=== PATIENT | male | born 1940 | race Caucasian/White ===

== ENCOUNTER → 2020-03-03 07:11 | Outpatient (CLI) | payer OTHER, SELFPAY ==
[2020-03-03 08:07] LABS: Hematocrit 40.3 % (41-53); Hemoglobin 14.2 g/dL (13.5-17.5); Mean Corpuscular HGB Conc 35.2 % (30-36); Mean Corpuscular Hemoglobin 33.9 PG (26-34); Mean Corpuscular Volume 96.1 fL (80-100); Platelet Count 219 X10^3/uL (150-400); Red Blood Cell Count 4.19 X10^6/uL (4.5-5.9); Red Cell Distribution Width 12.3 % (11.6-14.8)
[2020-03-03 08:22] LABS: Neutrophils Absolute Manual 2900 /uL (3000-5900); RBC Morphology Normal Morphology; Total Cells Counted 100
[2020-03-03 09:10] LABS: Vitamin B12 817 pg/mL (239-931)
[2020-03-03 09:36] LABS: Vitamin D 25 Hydroxy (D3) 57.2 ng/mL (30.0-100.0)
== END ==
PROVIDERS: Family Provider Internal Medicine; Referring Provider Internal Medicine; Visit Provider Internal Medicine
DX: E55.9 Vitamin D deficiency, unspecified (principal); E53.8 Deficiency of other specified B group vitamins
CPT/HCPCS: 36415; 82306; 82607; 85025

== ENCOUNTER → 2021-12-06 14:05 | Outpatient (CLI) | payer OTHER, SELFPAY ==
--- NOTE | 2021-12-06 14:08 | DI.US.S_ITS ---
PROCEDURE: US ABD AORTA ANEURYSM SCREEN INDICATIONS: ATHEROSCLEROTIC HEART DISEASE; ABDOMINAL PAIN TECHNIQUE: Real time scanning was performed of the aorta and iliac arteries, with image documentation. COMPARISON: US, ABDOMEN COMPLETE, 10/30/2013, 8:58. FINDINGS: Aorta: Proximal aortic diameter measures 2.3 cm. Mid-aorta measures 2.1 cm. Distal aortic diameter is 1.8 cm. Iliac arteries: Right common iliac artery measures 0.4 cm. Left common iliac artery measures 1.5 cm. IMPRESSION: No abdominal aortic or proximal common iliac artery aneurysm. Dictated by: Balta Marie [facility] Interpreted: Toni Ferguson MD on 12/06/2021 at 15:06 Transcribed by: BASILIA on 12/06/2021 at 15:06 Approved by: Toni Ferguson M.D. on 12/07/2021 at 10:42
--- NOTE | 2021-12-06 14:08 | DI.US.S_ITS ---
PROCEDURE: US CAROTID DOPPLER BI INDICATIONS: ATHEROSCLEROTIC HEART DISEASE TECHNIQUE: Color and pulse Doppler interrogation was performed of both carotid systems, with image documentation and velocity measurements. COMPARISON: None. FINDINGS: Stenosis calculations are based on SRU (Society of Radiologists in Ultrasound) criteria. Right side: Brachial blood pressure: 112/74 mm Hg. Common carotid artery peak systolic velocity: 73 cm/sec. Internal carotid artery peak systolic velocity: 50 cm/sec. Internal carotid artery end diastolic velocity: 13 cm/sec. External carotid artery peak systolic velocity: 112 cm/sec. ICA/CCA peak systolic ratio: 0.7 . De Jesus scale imaging description: Mild scattered plaque. Percent internal carotid artery stenosis: Less than 50% . Vertebral artery: Flow direction is antegrade. Left side: Brachial blood pressure: 115/71 mm Hg. Common carotid artery peak systolic velocity: 82 cm/sec. Internal carotid artery peak systolic velocity: 66 cm/sec. Internal carotid artery end diastolic velocity: 22 cm/sec. External carotid artery peak systolic velocity: 77 cm/sec. ICA/CCA peak systolic ratio: 0.8 . De Jesus scale imaging description: Mild to moderate plaque Percent internal carotid artery stenosis: Less than 50% . Vertebral artery: Flow direction is antegrade. IMPRESSION: Less than 50% bilateral internal carotid artery stenosis. Dictated by: Balta Marie [facility] Interpreted: Toni Ferguson MD on 12/06/2021 at 15:13 Transcribed by: BASILIA on 12/06/2021 at 15:16 Approved by: Toni Ferguson M.D. on 12/07/2021 at 10:42
== END ==
PROVIDERS: Family Provider Internal Medicine; PCP Internal Medicine; Referring Provider Specialist; Visit Provider Specialist
DX: I65.23 Occlusion and stenosis of bilateral carotid arteries (principal); I25.110 Atherosclerotic heart disease of native coronary artery with unstable angina pectoris; Z13.6 Encounter for screening for cardiovascular disorders; R10.9 Unspecified abdominal pain
CPT/HCPCS: 76706; 93880

== ENCOUNTER → 2022-02-18 09:25 | Outpatient (CLI) | payer OTHER, SELFPAY ==
[2022-02-18 10:35] LABS: Add Manual Diff / Slide Review NO; Basophils Absolute Auto 100 /uL (0-100); Basophils Percent Auto 1.4 % (0-2); Eosinophils Absolute Auto 500 /uL (0-450); Eosinophils Percent Auto 7.6 % (2-4); Hematocrit 38.3 % (41-53); Hemoglobin 13.8 g/dL (13.5-17.5); Lymphocytes Absolute Auto 1400 /uL (1100-4500); Lymphocytes Percent Auto 22.5 % (25-40); Mean Corpuscular Hemoglobin 34.2 PG (26-34); Mean Corpuscular Volume 95.2 fL (80-100); Monocytes Absolute Auto 500 /uL (0-900); Monocytes Percent Auto 8.7 % (3-14); Neutrophils Absolute Auto 3700 /uL (1500-7000); Neutrophils Percent Auto 59.8 % (50-75); Platelet Count 258 X10^3/uL (150-400); Red Blood Cell Count 4.02 X10^6/uL (4.5-5.9); Red Cell Distribution Width 12.6 % (11.6-14.8); White Blood Cell Count 6.2 X10^3/uL (4.5-11.0)
[2022-02-18 10:52] LABS: Alanine Aminotransferase 21 IU/L (<50); Albumin Globulin Ratio 1.7 (1.0-2.8); Alkaline Phosphatase 87 U/L (38-126); Aspartate Aminotransferase 28 IU/L (17-59); Bilirubin Total 1.1 mg/dL (0.2-1.3); Blood Urea Nitrogen 12 mg/dL (9-20); Calcium 9.1 mg/dL (8.4-10.2); Carbon Dioxide 31 mmol/L (22-32); Chloride 105 mmol/L (98-107); Estimated Glomerular Filt Rate > 60 mL/min (>60); Globulin 2.4 g/dL (1.7-4.1); Glucose 123 mg/dL (80-110); HEMOLYSIS < 15 (0-50); Potassium 4.6 mmol/L (3.4-5.1); Sodium 139 mmol/L (137-145); Total Protein 6.4 g/dL (6.3-8.2)
[2022-02-18 11:03] LABS: Hemoglobin A1C% w Est Avg Glu 5.8 % (4.0-6.0)
[2022-02-18 11:13] LABS: TSH w/ Reflex to FT4 4.22 uIU/mL (0.47-4.68)
== END ==
PROVIDERS: Family Provider Internal Medicine; PCP Internal Medicine; Referring Provider Internal Medicine; Visit Provider Internal Medicine
DX: I25.10 Atherosclerotic heart disease of native coronary artery without angina pectoris (principal); R73.9 Hyperglycemia, unspecified; R41.0 Disorientation, unspecified
CPT/HCPCS: 36415; 80053; 83036; 84443; 85025

== ENCOUNTER → 2022-06-02 15:48 | Outpatient (CLI) | payer OTHER, SELFPAY | PROVIDERS: Family Provider Internal Medicine; PCP Internal Medicine; Referring Provider Internal Medicine; Visit Provider Internal Medicine | DX: B77.9 Ascariasis, unspecified (principal) | CPT/HCPCS: 87177 ==

== ENCOUNTER → 2023-10-05 12:43 | Outpatient (CLI) | payer OTHER, SELFPAY ==
[2023-10-08 15:30] LABS: Fecal Immunochemical Test Negative (Negative)
== END ==
LOC: LAB 12:44
PROVIDERS: Family Provider Internal Medicine; PCP Internal Medicine; Referring Provider Surgery; Visit Provider Surgery
DX: Z86.010 Personal history of colon polyps (principal)
CPT/HCPCS: 82274

== ENCOUNTER → 2024-02-19 09:37 | Outpatient (CLI) | payer OTHER, SELFPAY ==
[2024-02-19 12:29] LABS: Glucose 123 mg/dL (80-110)
[2024-02-19 15:40] LABS: Hemoglobin A1C% w Est Avg Glu 5.9 % (4.0-6.0)
== END ==
PROVIDERS: Family Provider Internal Medicine; PCP Internal Medicine; Referring Provider Internal Medicine; Visit Provider Internal Medicine
DX: R73.9 Hyperglycemia, unspecified (principal)
CPT/HCPCS: 36415; 82947; 83036

== ENCOUNTER → 2024-09-11 15:20 | Outpatient (CLI) | payer OTHER, SELFPAY ==
[2024-09-16 11:38] LABS: Cholesterol, Total 112 mg/dL (100-199); HDL-Cholesterol 64 mg/dL (>39); HDL-Particle (Total) 28.9 umol/L (>=30.5); Historical Reading Comment: (.); LDL Particle <300 nmol/L (<1000); LDL-Cholsterol 34 mg/dL (0-99); LP-IR Score <25 (<=45); Small LDL- Particle <90 nmol/L (<=527); Triglycerides 65 mg/dL (0-149)
== END ==
PROVIDERS: Family Provider Internal Medicine; PCP Internal Medicine; Referring Provider Specialist; Visit Provider Specialist
DX: E78.2 Mixed hyperlipidemia (principal)
CPT/HCPCS: 36415; 80061; 83704

== ENCOUNTER → 2024-11-13 09:02 | Outpatient (CLI) | payer OTHER, SELFPAY ==
[2024-11-13 10:22] LABS: Hemoglobin A1C% w Est Avg Glu 5.9 % (4.0-6.0)
[2024-11-13 10:28] LABS: Glucose 127 mg/dL (80-110)
== END ==
PROVIDERS: Family Provider Internal Medicine; PCP Internal Medicine; Referring Provider Internal Medicine; Visit Provider Internal Medicine
DX: R73.9 Hyperglycemia, unspecified (principal)
CPT/HCPCS: 36415; 82947; 83036

== ENCOUNTER → 2024-12-25 15:30 | Outpatient (CLI) | payer OTHER, SELFPAY ==
[2024-12-25 16:06] LABS: Add Manual Diff / Slide Review NO; Basophils Absolute Auto 100 /uL (0-100); Basophils Percent Auto 0.8 % (0-2); Eosinophils Absolute Auto 200 /uL (0-450); Eosinophils Percent Auto 1.9 % (2-4); Hematocrit 35.8 % (41-53); Hemoglobin 12.7 g/dL (13.5-17.5); Lymphocytes Absolute Auto 1500 /uL (1100-4500); Lymphocytes Percent Auto 17.8 % (25-40); Mean Corpuscular HGB Conc 35.4 % (30-36); Mean Corpuscular Hemoglobin 34.1 PG (26-34); Mean Corpuscular Volume 96.5 fL (80-100); Monocytes Absolute Auto 700 /uL (0-900); Monocytes Percent Auto 8.1 % (3-14); Neutrophils Absolute Auto 6100 /uL (1500-7000); Neutrophils Percent Auto 71.4 % (50-75); Platelet Count 215 X10^3/uL (150-400); Red Blood Cell Count 3.71 X10^6/uL (4.5-5.9); White Blood Cell Count 8.5 X10^3/uL (4.5-11.0)
[2024-12-25 16:33] LABS: Alanine Aminotransferase 21 IU/L (<50); Albumin 4.1 g/dL (3.5-5.0); Albumin Globulin Ratio 1.7 (1.0-2.8); Alkaline Phosphatase 80 U/L (38-126); Aspartate Aminotransferase 25 IU/L (17-59); BUN Creatinine Ratio 26.6 (6-22); Bilirubin Total 1.1 mg/dL (0.2-1.3); Blood Urea Nitrogen 21 mg/dL (9-20); Calcium 8.9 mg/dL (8.4-10.2); Carbon Dioxide 25 mmol/L (22-32); Chloride 105 mmol/L (98-107); Estimated Glomerular Filt Rate > 60 mL/min (>60); Globulin 2.4 g/dL (1.7-4.1); Glucose 209 mg/dL (80-110); HEMOLYSIS < 15 (0-50); Lactate Dehydrogenase 192 U/L (120-246); Potassium 3.9 mmol/L (3.4-5.1); Sodium 138 mmol/L (137-145); Total Protein 6.5 g/dL (6.3-8.2)
[2024-12-25 17:04] LABS: Prostate Specific Antigen 0.323 ng/mL (0.10-4.00)
[2024-12-25 18:03] LABS: Erythrocyte Sedimentation Rate 12 MM/HR (0-15)
[2024-12-29 12:39] LABS: Albumin 3.7 g/dL (2.9-4.4); Alpha 1 Globulin 0.2 g/dL (0.0-0.4); Alpha 2 Globulin 0.6 g/dL (0.4-1.0); Beta 1 Globulin 0.9 g/dL (0.7-1.3); Gamma Globulin 0.8 g/dL (0.4-1.8); Protein, Total 6.2 g/dL (6.0-8.5)
== END ==
PROVIDERS: Physician Assistant; Family Provider Internal Medicine; PCP Internal Medicine; Referring Provider Internal Medicine; Visit Provider Internal Medicine
DX: R59.1 Generalized enlarged lymph nodes (principal)
CPT/HCPCS: 36415; 80053; 83615; 84153; 84155; 84165; 85025; 85651

== ENCOUNTER → 2024-12-30 15:12 | Outpatient (CLI) | payer OTHER, SELFPAY ==
--- NOTE | 2024-12-30 15:14 | DI.US.S_ITS ---
PROCEDURE: US SOFT TISSUE HEAD AND NECK INDICATIONS: RIGHT SUBMANDIBULAR LUMP TECHNIQUE: Real-time scanning was performed of the neck region of interest, with image documentation. COMPARISON: None. FINDINGS AND IMPRESSION: Heterogeneous enlarged submandibular gland, possibly inflammatory, though this could also represent a gland replaced by malignant mass lesion. There is an adjacent abnormal lymph node measuring 2.1 x 1.6 x [address] neck and ultrasound-guided sampling. Dictated by: Cesar Urbina M.D. on 12/30/2024 at 15:58 Approved by: Cesar Urbina M.D. on 12/30/2024 at 15:59
== END ==
PROVIDERS: Family Provider Internal Medicine; PCP Internal Medicine; Referring Provider Physician Assistant; Visit Provider Physician Assistant
DX: K11.1 Hypertrophy of salivary gland (principal); R59.1 Generalized enlarged lymph nodes
CPT/HCPCS: 76536

== ENCOUNTER → 2025-01-02 13:48 | Outpatient (CLI) | payer OTHER, SELFPAY ==
--- NOTE | 2025-01-02 13:48 | DI.CT.S_ITS ---
PROCEDURE: CT SOFT TISSUE NECK W CON INDICATIONS: mass right submandibular TECHNIQUE: After the administration of intravenous contrast, 3.0 mm axial sections acquired from the sella to the aortic arch. Additional oblique axial 3.0 mm sections acquired through the pharynx. 3 mm thick coronal and sagittal reformats were generated. For radiation dose reduction, the following was used: automated exposure control. COMPARISON: [facility], US, US SOFT TISSUE HEAD AND NECK, 12/30/2024, 15:29. [facility], CT, CT HEAD WITHOUT CONTRAST, 03/10/2020, 5:51. FINDINGS: Image quality: Excellent. Lymph nodes: No enlarged lymph nodes seen throughout the neck. Vessels: Visualized vasculature appears patent. Neck spaces: The oropharynx, nasopharynx, and pharynx demonstrate no mucosal lesions. The vocal cords, false vocal cords, pyriform sinuses, epiglottis, vallecula, and tongue base all appear normal. Extramucosal spaces appear unremarkable. Glands: The parotid glands appear normal. Along the inferior anterior aspect of the right submandibular gland there is an ovoid soft tissue density measuring 2.4 x 1.3 cm. The right submandibular gland appears slightly asymmetrically prominent. Thyroid gland is unremarkable. Miscellaneous: Visualized brain and orbits appear normal. Lung apices appear clear. Superficial soft tissues appear normal. Bones: No suspicious bony lesions. Visualized sinuses and mastoids appear unremarkable. IMPRESSION: Soft tissue mass anterior inferior to the right submandibular gland. While this could represent a pathologically enlarged lymph node, other etiologies cannot be excluded. Right submandibular gland appears mildly prominent which may be related to infection or inflammation. Infiltrative disease cannot be excluded. FNA/biopsy is recommended. Dictated by: Holly Magaña M.D. on 01/02/2025 at 15:18 Approved by: Holly Magaña M.D. on 01/02/2025 at 15:26
== END ==
PROVIDERS: Family Provider Internal Medicine; PCP Internal Medicine; Referring Provider Physician Assistant; Visit Provider Physician Assistant
DX: K11.8 Other diseases of salivary glands (principal); R59.1 Generalized enlarged lymph nodes
CPT/HCPCS: 70491; Q9967

== ENCOUNTER → 2025-01-07 10:29 | Outpatient (CLI) | payer OTHER, SELFPAY ==
[2025-01-07 11:24] LABS: Glucose 135 mg/dL (80-110)
== END ==
PROVIDERS: Family Provider Internal Medicine; PCP Internal Medicine; Referring Provider Internal Medicine; Visit Provider Internal Medicine
DX: E11.69 Type 2 diabetes mellitus with other specified complication (principal); E78.5 Hyperlipidemia, unspecified
CPT/HCPCS: 36415; 82947

== ENCOUNTER → 2025-01-14 12:38 | Outpatient (CLI) | payer OTHER, SELFPAY ==
--- NOTE | 2025-01-14 12:42 | DI.US.S_ITS ---
PROCEDURE: US BIOPSY LYMPH NODE INDICATIONS: SUBMANDIBULAR GLAND MASS TECHNIQUE: The indications, alternatives, benefits, risks, and complications of the procedure were explained to the patient. Written informed consent was obtained and placed in the chart. Real-time sonography was utilized to choose the site for percutaneous lymph node sampling. The skin was prepped and draped in the usual sterile fashion. 1% lidocaine was infiltrated down to the site of interest. A coaxial needle was then advanced into the site of interest under direct sonographic visualization. A biopsy apparatus was then utilized, and core biopsies were obtained. The needle was then withdrawn; a bandage was applied to the biopsy site. COMPARISON: None. FINDINGS: Biopsy site(s): Right submandibular lymph node and submandibular gland mass Needle: 25 and 22 gauge needles Number of passes: 6 in each lesion Medications: 1% lidocaine for local anaesthesia. Complications: None. IMPRESSION: Successful ultrasound-guided right submandibular lymph node and right submandibular mass fine needle aspiration biopsy, with pathology results pending. Dictated by: Nicolas Lopez M.D. on 01/14/2025 at 20:55 Approved by: Nicolas Lopez M.D. on 01/14/2025 at 20:57
--- NOTE | 2025-01-14 14:11 | PATH_ITS ---
Note [facility] Accession Number: [id number] TESTS RESULT FLAG UNITS REF RANGE LAB Clinician Provided Cytology Information No. of containers..01 Other (Miscellaneous) Source: RIGHT SUBMANDIBULAR GLAND X 6 DIAGNOSIS: RIGHT SUBMANDIBULAR GLAND X 6 INCONCLUSIVE. Scattered atypical epithelioid fragments and background lymphocytes. Limited cellularity. Recommend additional sampling. Pathologist ICD10: K11.8 Signed out by: Veronika Lara DO, Pathologist NPI- [id number] Performed by: Michael Hightower, Sales Route Driver Helper ([facility]) Gross description: 30 CC, YELLOW, CLEAR RECIEVED: IN CYTOLYT WITH BLUE CAP CONTAINER.VO /VDU 01/15/2025 0629 Local FLAG LEGEND: L-Low Normal,H-High Normal,LL-Alert Low,HH-Alert High <-Panic Low,>-Panic High,A-Abnormal,AA-Critical Abnormal Performed at: 01 =[address] [facility], [place] [address] Rocael Guadalupe MD, Specimen Comment: [id number] Performed at: [address], [place], [place] [id number] MD Rocael Guadalupe MD Phone: [phone]
--- NOTE | 2025-01-14 14:13 | PATH_ITS ---
Note [facility] Accession Number: [id number] TESTS RESULT FLAG UNITS REF RANGE LAB Clinician Provided Cytology Information No. of containers..01 Other (Miscellaneous) Source: RIGHT LYMPH NODE X 4 DIAGNOSIS: RIGHT LYMPH NODE X 4 NEGATIVE FOR MALIGNANT CELLS. POLYMORPHOUS LYMPHOID SAMPLE. Pathologist ICD10: R59.1 Signed out by: Veronika Lara DO, Pathologist NPI- [id number] Performed by: Sanjiv Hutchins, Integrated Specialist ([facility]) Gross description: 30 CC, COLORLESS, CLEAR RECIEVED: IN CYTOLYT WITH BLUE CAP CONTAINER.VO /VDU 01/15/2025 0630 Local FLAG LEGEND: L-Low Normal,H-High Normal,LL-Alert Low,HH-Alert High <-Panic Low,>-Panic High,A-Abnormal,AA-Critical Abnormal Performed at: 01 =Z [facility] [address], [place] [address] Rocael Guadalupe MD, Specimen Comment: [id number] Performed at: [address] [facility] [address], [place], [place] [id number] MD Rocael Guadalupe MD Phone: [phone]
== END ==
PROVIDERS: Family Provider Internal Medicine; PCP Internal Medicine; Referring Provider Physician Assistant; Visit Provider Physician Assistant
DX: K11.8 Other diseases of salivary glands (principal); R59.1 Generalized enlarged lymph nodes
CPT/HCPCS: 38505; 76942

== ENCOUNTER → 2025-01-23 12:55 | Outpatient (CLI) | payer OTHER, SELFPAY ==
--- NOTE | 2025-02-03 10:54 | DIAB.MNT ---
Initial Diabetes Medical Nutrition Therapy Assessment Name: Alejandro Tubbs (Hakan) Date: 01/23/25 Time: 2-3p Dx: Type II Diabetes Provider: Corinne Preferred Learning Style: Listening, Reading Hakan presents for initial DM visit. Recently diagnosed with elevated FBG, though HgA1c 5.9%. States he would like to know more about food combinations, when to eat, when to be active, checking BG, and more about Jardiance. States he has checked BG in the past. Interested in potential CGM sample next visit. has PCP appt coming up, plans to ask more about Jardiance. Two weeks ago noticed a vision distortion, this has since subsided. On a plant based diet. Diet Recall: 8a: 1.5c oats, smoothie with veggies, fruit, soy milk 12p: nuts, sandwich with veggie meat or PB on ww bread sn: peanuts, recently d/c dates 6p: salad and 1.5c beans or tofu OR 6-7c popcorn +/- nutritional yeast OR nothing 10p: nuts or beans butter substitute water 48oz x 1.5 soy milk with oj with dinner 16oz Recently switched from rice to riced cauliflower lives with spouse Anthropometrics: Ht: 6'1 Wt: 182# Physical Activity: Walking/jogging 4 days per week, pushups 2x per week Self-Monitoring Blood Glucose: none currently. no supplies. Diabetes Medications: 10mg Jardiance -- not started Pertinent Labs: HgA1c: 5.9% 11/2024 FBG 135mg/dl 01/07/2025 non fastinmg/dl 11/2024 Past Medical History: (Last Reviewed 01/26/25 @ 11:21 by Tristan Sun MD) Actinic keratosis Benign essential tremor Cataracts, bilateral (~2018) Chicken pox Coronary artery disease (~2000) DM type 2 with diabetic dyslipidemia Hearing loss (~2004) Lumbar degenerative disc disease Lymphadenopathy Measles Mixed hyperlipidemia Sensorineural hearing loss, bilateral Skin cancer (~1989) Nutrition Rx: Carbohydrates: Meal:45g Snack:15-30g Nutrition Diagnosis: - Nutrition and food related knowledge deficit r/t newly dx T2DM aeb elevated lab BG values and pt report - Predicted excessive CHO intake r/t nutrition knowledge deficit aeb diet recall at dinner with juice and meal Intervention: This participant was very receptive. Provided appropriate educational handouts. Discussed the following topics: Completed intake assessment. Discussed barriers to care. Pathophysiology of T2DM HgA1c v hyperglycemia diagnosis of T2DM Potential for self-monitoring, how often, and when to check. Plate Method, impact of macronutrients on blood sugar, meal timing, brief review of carb counting, pairing macronutrients and spreading out carbohydrates for better blood glucose management Recommended servings for carbohydrates at meals and snacks Heart health nutrition Impact of sugar beverages on BG Role of physical activity and following provider guidelines for safety Jardiance action, benefits, and SE Created SMART goals for patient self-care and success. Goals: Reduce oatmeal to 1c and add protein Add protein to popcorn more consistently Avoid juice Follow-up: LETTY JOSEPH follow-up in 3-4 weeks Svetlana Sena RDN, [facility] Certified Diabetes Care and Overlocker P: [phone] Thank you for this referral
== END ==
LOC: DIET 12:55
PROVIDERS: Family Provider Internal Medicine; PCP Internal Medicine; Referring Provider Internal Medicine
DX: E11.65 Type 2 diabetes mellitus with hyperglycemia (principal); Z71.3 Dietary counseling and surveillance
CPT/HCPCS: 97802

== ENCOUNTER → 2025-02-18 13:54 | Outpatient (CLI) | payer OTHER, SELFPAY ==
--- NOTE | 2025-02-18 13:58 | DIAB.MNTFU ---
Follow-up Diabetes Medical Nutrition Therapy Assessment Name: Alejandro Tubbs (Hakan) Date: 02/18/25 Time: 2-245p Dx: Type II Diabetes Hakan presents for follow-up DM visit. Recently diagnosed with elevated FBG, though HgA1c 5.9%. Taking 10mg Jardiance without SE. Eliminated juice. Added nuts to the morning Paying more attention to higher glycemic index and pairing. Looking for some variation in protein with plant based diet. Has questions about oat types. Wondering how physical activity impacts BG. wants to know how Dm can impact health. Avoiding donuts right now per reprot. Eating dark chocolate instead. Interested in sample CGM. On a plant based diet. Using a DM plant based book. lives with spouse Anthropometrics: Ht: 6'1 Wt: 173# 01/2025 176# 12/2024 Physical Activity: Walking/jogging 4 days per week, pushups 2x per week Self-Monitoring Blood Glucose: none currently. no supplies. Diabetes Medications: 10mg Jardiance Pertinent Labs: HgA1c: 5.9% 11/2024 FBG 135mg/dl 01/07/2025 non fastinmg/dl 11/2024 Past Medical History: (Last Reviewed 01/26/25 @ 11:21 by Tristan Sun MD) Actinic keratosis Benign essential tremor Cataracts, bilateral (~2018) Chicken pox Coronary artery disease (~2000) DM type 2 with diabetic dyslipidemia Hearing loss (~2004) Lumbar degenerative disc disease Lymphadenopathy Measles Mixed hyperlipidemia Sensorineural hearing loss, bilateral Skin cancer (~1989) Nutrition Rx: Carbohydrates: Meal:45g Snack:15-30g Nutrition Diagnosis: - Nutrition and food related knowledge deficit r/t newly dx T2DM aeb elevated lab BG values and pt report -- in progress - Predicted excessive CHO intake r/t nutrition knowledge deficit aeb diet recall at dinner with juice and meal -- improved - Self monitoring deficit r/t no supplies aeb pt report- new Intervention: This participant was very receptive. Provided appropriate educational handouts. Discussed the following topics: Pathophysiology of T2DM HgA1c measurement Types of oats and fiber Pairing CHO and protein Physical activity and BG CGM precautions, function, and use-- provided him with a sample FSL3 but needed passwords to start in clinic Complication risk reduction Created SMART goals for patient self-care and success. Goals: Reduce oatmeal to 1c and add protein-- met Add protein to popcorn more consistently -- met Avoid juice -- met Trial CGM sample- new Try to be active 1 hour after eating higher CHO foods- new Follow-up: LETTY JOSEPH follow-up in 3-4 weeks Svetlana Sena RDN, OP[facility] Certified Diabetes Care and Granulator P: [phone] Thank you for this referral
== END ==
PROVIDERS: Family Provider Internal Medicine; PCP Internal Medicine; Referring Provider Internal Medicine
DX: E11.65 Type 2 diabetes mellitus with hyperglycemia (principal); Z71.3 Dietary counseling and surveillance; Z79.84 Long term (current) use of oral hypoglycemic drugs
CPT/HCPCS: 97803

== ENCOUNTER → 2025-03-18 12:55 | Outpatient (CLI) | payer OTHER, SELFPAY ==
--- NOTE | 2025-03-27 09:17 | DIAB.MNTFU ---
Follow-up Diabetes Medical Nutrition Therapy Assessment Name: Alejandro Tubbs (Hakan) Date: 03/18/25 Time: 1-145p Dx: Type II Diabetes Hakan presents for follow-up DM visit. Recently diagnosed with elevated FBG, though HgA1c 5.9%. Adding protein to banana dessert. FBG improved recently, wearing CGM sample. Has questions about macronutrient pairing, kombucha benefits and CHO content. having oats for breakfast x2c cooked, no protein added. On a plant based diet. lives with spouse Anthropometrics: Ht: 6'1 Wt: 173# 01/2025 176# 12/2024 Physical Activity: Walking/jogging 4 days per week, pushups 2x per week Self-Monitoring Blood Glucose: Wore CGM sample. In range time at goal. FBG improved and lower than lab results, ranging 79-106mg/dl. TIR: 0% very high 1% high 99% in range 0% low or very low avmg/dl GMI: 6.2% variance: 20.8% Diabetes Medications: 10mg Jardiance Pertinent Labs: HgA1c: 5.9% 11/2024 FBG 135mg/dl 01/07/2025 non fastinmg/dl 11/2024 Past Medical History: (Last Reviewed 01/26/25 @ 11:21 by Tristan Sun MD) Actinic keratosis Benign essential tremor Cataracts, bilateral (~2018) Chicken pox Coronary artery disease (~2000) DM type 2 with diabetic dyslipidemia Hearing loss (~2004) Lumbar degenerative disc disease Lymphadenopathy Measles Mixed hyperlipidemia Sensorineural hearing loss, bilateral Skin cancer (~1989) Nutrition Rx: Carbohydrates: Meal:45gSnack:15-30g Nutrition Diagnosis: - Nutrition and food related knowledge deficit r/t newly dx T2DM aeb elevated lab BG values and pt report -- improved - Self monitoring deficit r/t no supplies aeb pt report- improved Intervention: This participant was very receptive. Provided appropriate educational handouts. Discussed the following topics: Kombucha benefits and CHO content BG trends and goals Fruit dessert impact on BG and importance of adding protein for BG management oats nutritoin and portion recs CGM options and BG monitoring Created SMART goals for patient self-care and success. Goals: Trial CGM sample- met Try to be active 1 hour after eating higher CHO foods- in progress Add seeds to oatmeal- new Limit oats to 1-1.5c per serving- new Try Stelo- new Follow-up: LETTY JOSEPH follow-up in 4 weeks Svetlana Sena RDN, [facility] Certified Diabetes Care and Systems Software Manager P: [phone] Thank you for this referral
== END ==
PROVIDERS: Family Provider Internal Medicine; PCP Internal Medicine
DX: E11.9 Type 2 diabetes mellitus without complications (principal); Z79.84 Long term (current) use of oral hypoglycemic drugs; Z71.3 Dietary counseling and surveillance
CPT/HCPCS: 97803

== ENCOUNTER → 2025-05-08 13:25 | Outpatient (CLI) | payer OTHER, SELFPAY ==
[2025-05-08 18:23] LABS: Blood Urea Nitrogen 16 mg/dL (9-20); Calcium 8.7 mg/dL (8.4-10.2); Carbon Dioxide 28 mmol/L (22-32); Chloride 103 mmol/L (98-107); Estimated Glomerular Filt Rate > 60 mL/min (>60); Glucose 99 mg/dL (70-99); HEMOLYSIS < 15 (0-50); Potassium 4.0 mmol/L (3.4-5.1); Sodium 137 mmol/L (137-145)
[2025-05-08 18:42] LABS: Hemoglobin A1C% w Est Avg Glu 5.9 % (4.0-6.0)
== END ==
PROVIDERS: PCP Internal Medicine; Referring Provider Internal Medicine; Visit Provider Internal Medicine
DX: E11.69 Type 2 diabetes mellitus with other specified complication (principal); E78.5 Hyperlipidemia, unspecified
CPT/HCPCS: 36415; 80048; 82043; 82570; 83036

== ENCOUNTER → 2025-05-26 09:03 | Outpatient (CLI) | payer OTHER, SELFPAY ==
--- NOTE | 2025-06-17 12:36 | DIAB.MNTFU ---
Follow-up Diabetes Medical Nutrition Therapy Assessment Name: Alejandro Tubbs (Hakan) Date: 05/26/25 Time: [id number] Dx: Type II Diabetes Hakan presents for follow-up DM visit, accompanied by his . Recently diagnosed with elevated FBG, though HgA1c 5.9%. Reports continued wt loss with diet changes, 163# reported today. States he prefers a wt of 170-174#. Endorses some vision changes lately glassy, but states this goes away after eating something. States Bg are not high or low during. No low BG documented in TIR, however may benefit from SMBG supplies to confirm. Had eye appt without concern 4-5 days ago. Diet recall: 8-9a: ww cereal with dried fruit and soy milk unsweetened and smoothie with seeds, frui and protein 12p: sandwich with veggies and tofu based protein and apple 7-8p: beans and veggies with ricotta on bread and salad 730p nut bar On a plant based diet. lives with spouse Anthropometrics: Ht: 6'1 Wt: 163# reported 05/2025 170# 03/2025 171.4# 03/2025 173# 01/2025 176# 12/2024 Physical Activity: usually walking/jogging 4 days per week, pushups 2x per week. Endorses less exercise lately. Self-Monitoring Blood Glucose: Wearing CGM. All in goal. FBG improved since elevated labs. TIR: 0% very high 5% high 95% in range 0% low or very low avmg/dl GMI: 6.4% std dev: 27mg/dl variance: 21.3% Last TIR: 0% very high 8% high 98% in range 0% low or very low avmg/dl GMI: % variance: % Diabetes Medications: 10mg Jardiance Pertinent Labs: Same hgA1c but improved FBG per labs HgA1c: 5.9% 11/2024 5.9% 05/2025 FBG 135mg/dl 01/07/2025 99mg/dl 05/2025 non fastinmg/dl 11/2024 Past Medical History: (Last Reviewed 01/26/25 @ 11:21 by Tristan Sun MD)Actinic keratosis Benign essential tremor Cataracts, bilateral (~2018) Chicken pox Coronary artery disease (~2000) DM type 2 with diabetic dyslipidemia Hearing loss (~2004) Lumbar degenerative disc disease Lymphadenopathy Measles Mixed hyperlipidemia Sensorineural hearing loss, bilateral Skin cancer (~1989) Nutrition Rx: Carbohydrates: Meal:45gSnack:15-30g Nutrition Diagnosis: - Nutrition and food related knowledge deficit r/t newly dx T2DM aeb elevated lab BG values and pt report -- improved/in progress - Predicted inadequate kcal intake r/t reduced CHO intake to manage Dm aeb pt report, diet recall and wt loss - new Intervention: This participant was very receptive. Provided appropriate educational handouts. Discussed the following topics: Physical activity and maintaining LBM Strategies to mitigate wt loss Higher kcal foods with proteins and heart healthy fats BG goals Net CHO and label reading Meal/snack timing Created SMART goals for patient self-care and success. Goals: Try thin sliced bread ww bread- met Try to move after meals- not met Restart exercise- new Try balanced snack bar- new Add 3-4p snack- new Consider adding HS snack to add kcals- new Follow-up: LETTY JOSEPH follow-up in 6-8 weeks Svetlana Sena RDN, [facility] Certified Diabetes Care and Blending Machine Operator P: [phone] Thank you for this referral
== END ==
PROVIDERS: PCP Internal Medicine; Referring Provider Internal Medicine
DX: E11.9 Type 2 diabetes mellitus without complications (principal); Z79.84 Long term (current) use of oral hypoglycemic drugs
CPT/HCPCS: 97803

== ENCOUNTER → 2025-07-15 09:09 | Outpatient (CLI) | payer OTHER, SELFPAY ==
--- NOTE | 2025-08-12 12:10 | DIAB.FU ---
Follow-up Diabetes Education Assessment Name: Alejandro Tubbs (Hakan) Date: 07/15/25 Time: 960-120a Dx: Type II Diabetes Hakan presents for follow-up DM visit. Recently diagnosed with elevated FBG, though HgA1c 5.9%. Endorses an 11# loss since diet changes. Also reports feeling satisfied with diet intake. Making tofu for snacks. cut popcorn out of his diet after seeing elevated BG on CGM. Questions about finger sticks for BG, BG goals, and DM complications. Reports continued wt loss with diet changes, 163# reported today. States he prefers a wt of 170-174#. Endorses some vision changes lately glassy, but states this goes away after eating something. States Bg are not high or low during. No low BG documented in TIR, however may benefit from SMBG supplies to confirm. Had eye appt without concern 4-5 days ago. Anthropometrics: Ht: 6'1 Wt: 164# 07/2025 163# reported 05/2025 170# 03/2025 171.4# 03/2025 173# 01/2025 176# 12/2024 Physical Activity: Walking 5 miles 4 days per week Self-Monitoring Blood Glucose: Wearing CGM. All in goal. FBG in goal. TIR: 0% very high 11% high 89% in range 0% low or very low avmg/dl GMI: 6.4% std dev: 27mg/dl variance: 21% Last TIR: 0% very high 5% high 95% in range 0% low or very low avmg/dl GMI: 6.4% std dev: 27mg/dl variance: 21.3% Diabetes Medications: 10mg Jardiance Pertinent Labs: Same hgA1c but improved FBG per labs HgA1c: 5.9% 11/2024 5.9% 05/2025 FBG 135mg/dl 01/07/2025 99mg/dl 05/2025 non fastinmg/dl 11/2024 Past Medical History: (Last Reviewed 01/26/25 @ 11:21 by Tristan Sun MD)Actinic keratosis Benign essential tremor Cataracts, bilateral (~2018) Chicken pox Coronary artery disease (~2000) DM type 2 with diabetic dyslipidemia Hearing loss (~2004) Lumbar degenerative disc disease Lymphadenopathy Measles Mixed hyperlipidemia Sensorineural hearing loss, bilateral Skin cancer (~1989) Intervention: This participant was very receptive. Provided appropriate educational handouts. Discussed the following topics: SMBG education BG goals per ADA and AACE Reduced complication risks with in goal BG FBG goals hgA1c goals and hx weight changes Created SMART goals for patient self-care and success. Goals: Restart exercise- met Try balanced snack bar- met Add 3-4p snack- not met Consider adding HS snack to add kcals- not met Pair tofu with yonana dessert- new If finger sticks, complete 1-2x per day- new AIm for 3-4pm snack- new Follow-up: LETTY JOSEPH follow-up in 6-8 weeks Svetlana Sena RDN, [facility] Certified Diabetes Care and Writing Center Director P: [phone] Thank you for this referral
== END ==
LOC: DIET 09:10
PROVIDERS: PCP Internal Medicine; Referring Provider Internal Medicine
DX: E11.9 Type 2 diabetes mellitus without complications (principal); Z71.3 Dietary counseling and surveillance; Z79.84 Long term (current) use of oral hypoglycemic drugs
CPT/HCPCS: G0108

== ENCOUNTER → 2025-09-08 09:22 | Outpatient (CLI) | payer OTHER, SELFPAY ==
[2025-09-08 10:16] LABS: Hemoglobin A1C% w Est Avg Glu 5.7 % (4.0-6.0)
[2025-09-08 10:37] LABS: Blood Urea Nitrogen 27 mg/dL (9-20); Calcium 9.4 mg/dL (8.4-10.2); Carbon Dioxide 27 mmol/L (22-32); Chloride 104 mmol/L (98-107); Estimated Glomerular Filt Rate > 60 mL/min (>60); Glucose 112 mg/dL (70-99); HEMOLYSIS < 15 (0-50); Potassium 4.8 mmol/L (3.4-5.1); Sodium 139 mmol/L (137-145)
== END ==
PROVIDERS: PCP Internal Medicine; Referring Provider Internal Medicine; Visit Provider Internal Medicine
DX: E11.69 Type 2 diabetes mellitus with other specified complication (principal); E78.5 Hyperlipidemia, unspecified
CPT/HCPCS: 36415; 80048; 83036; G0108